=== PATIENT | female | born 2000 | race Native Hawaiian/Other Pacific Islander ===

== ENCOUNTER 2023-11-27 13:36 | Emergency (ER) | payer BC ==
[~2023-11-27] VITALS: Ht 157.5 cm; Wt 67.1 kg
[2023-11-27 14:29] LABS: CALCIUM 9.1 mg/dL (8.5-10.1); CREATININE 0.9 mg/dL (0.6-1.3); POTASSIUM 3.6 mmol/L (3.5-5.1)
[2023-11-27 14:30] LABS: *BILIRUBIN,URIN NEGATIVE (NEGATIVE); *BLOOD, URINE 2+ (NEGATIVE); *COLOR,URINE YELLOW (YELLOW); *KETONES,URINE TRACE (NEGATIVE); *PROTEIN,URINE 1+ (NEGATIVE); *UROBILINOGEN,URINE 0.2 E.U./dl (NORMAL); LEUKOCYTE ESTERASE ,URINE NEGATIVE (NEGATIVE); NITRITE, URINE NEGATIVE (NEGATIVE); UGLUCOSE NEGATIVE (NEGATIVE)
[2023-11-27 14:35] LABS: ALBUMIN 4.5 g/dL (3.4-5.0); BILIRUBIN,DIRECT 0.1 mg/dL (0.0-0.2); BILIRUBIN,TOTAL 0.5 mg/dL (0.2-1.0); TOTAL PROTEIN, SERUM 7.9 g/dL (6.4-8.2)
[2023-11-27 14:38] LABS: *CLARITY,URINE SLIGHTLY CLOUDY (CLEAR)
[2023-11-27 14:38] LABS: BASOPHILS % (AUTO) 0.6 % (0.0-2.0); EOSINOPHILS % (AUTO) 0.4 % (0.0-7.0); HEMATOCRIT 37.1 % (31.2-41.9); HEMOGLOBIN 12.3 g/dL (10.9-14.3); LYMPHOCYTES # (AUTO) 3.2 K/uL (0.8-4.8); LYMPHOCYTES % (AUTO) 42.9 % (20.5-51.5); MEAN CORPUSCULAR HGB CONC 33 g/dL (32.3-35.6); MEAN CORPUSCULAR VOLUME 90.7 fL (75.5-95.3); MONOCYTES # (AUTO) 0.4 K/uL (0.1-1.30); MONOCYTES % (AUTO) 5.3 % (0.0-11.0); NEUTROPHILS # (AUTO) 3.8 K/uL (1.8-8.9); NEUTROPHILS % (AUTO) 50.8 % (38.5-71.5); PLATELET COUNT (AUTO) 232 K/uL (179-408); RED BLOOD CELL COUNT(AUTO) 4.08 MIL/uL (3.63-4.92); WHITE BLOOD COUNT (AUTO) 7.6 K/uL (3.8-11.8)
[2023-11-27 14:40] LABS: DIFFERENTIAL COMMENT 1
[2023-11-27 14:42] LABS: *URINE HCG, QUAL NEGATIVE (NEGATIVE)
[2023-11-27 15:11] LABS: BACTERIA,URINE FEW /HPF (NONE SEEN); SQUAMOUS EPITHELIAL CELL,UR MODERATE /HPF (NONE SEEN); WBC,URINE 0-3 /HPF (0-3)
[2023-11-27] MEDS ORDERED: SULF1TAB48 PO (15:24)
[2023-11-27 15:55] VITALS: BP 92/64; O2SAT 99
== END 2023-11-27 15:55 | disposition home or self-care (01) ==
LOC: ER 13:36
DX: N30.91 Cystitis, unspecified with hematuria (principal); N83.209 Unspecified ovarian cyst, unspecified side; R10.2 Pelvic and perineal pain
CPT/HCPCS: 36415; 84703; 85025; A4606; A4663

== ENCOUNTER 2024-05-30 13:52 | Emergency (ER) | payer BC ==
[~2024-05-30] VITALS: Ht 162.6 cm; Wt 71.2 kg
[~2024-05-30 13:52] MED LIST: SULF1TAB48 PO
[2024-05-30] MEDS ORDERED: TDAP DIPH,PERTUSS,TET VAC/PF 0.5 ML DISP.SYRIN IM ONE (14:35)
[2024-05-30] MEDS ORDERED: HYDROMORPHONE 1 MG/1 ML DISP.SYRIN ONE (14:35)
[2024-05-30] MEDS ORDERED: diphenhydrAMINE 50 MG/1 ML VIAL ONE (14:35)
[2024-05-30] MEDS ORDERED: NEOMY/BACITRA/POLYMYXIN B OINT UD PACKET TP ONE (14:35)
[2024-05-30] MEDS: HYDROMORPHONE 1 MG/1 ML DISP.SYRIN IM ONE (14:44)
[2024-05-30] MEDS: diphenhydrAMINE 50 MG/1 ML VIAL IM ONE (14:44)
[2024-05-30] MEDS: TDAP DIPH,PERTUSS,TET VAC/PF 0.5 ML DISP.SYRIN IM ONE (14:45)
[2024-05-30] MEDS: NEOMY/BACITRA/POLYMYXIN B OINT UD PACKET TP ONE (14:45)
[2024-05-30] MEDS ORDERED: NEOMY/BACITRAC/POLYMI OINT 28.35 GM TUBE ONE (15:06)
[2024-05-30] MEDS ORDERED: HYDR-3973 PO (16:03)
[2024-05-30 16:07] VITALS: BP 131/80; O2SAT 98
== END 2024-05-30 16:07 | disposition home or self-care (01) ==
LOC: ER 13:58
DX: T21.22XA Burn of second degree of abdominal wall, initial encounter (principal); F12.90 Cannabis use, unspecified, uncomplicated; X11.8XXA Contact with other hot tap-water, initial encounter; Y93.89 Activity, other specified; Y92.89 Other specified places as the place of occurrence of the external cause; Y99.8 Other external cause status
CPT/HCPCS: 99283; 90715; 16020; 90471; J1171; J1200; A4606; A4663

== ENCOUNTER 2024-09-05 17:40 | Emergency (ER) | payer BC ==
[~2024-09-05] VITALS: Ht 157.5 cm; Wt 66.2 kg
[~2024-09-05 17:40] MED LIST changes: +HYDR-3973 PO
[2024-09-05] MEDS ORDERED: HYDR-501 PO (18:36)
[2024-09-05 18:41] VITALS: BP 119/71; O2SAT 97
== END 2024-09-05 18:41 | disposition home or self-care (01) ==
LOC: ER 17:45
DX: L50.9 Urticaria, unspecified (principal); F12.90 Cannabis use, unspecified, uncomplicated
CPT/HCPCS: A4606; A4663